=== PATIENT | male | born 1960 | race Caucasian/White ===

== ENCOUNTER 2017-02-17 11:12 | Emergency (ER) | payer BC ==
--- NOTE | 2017-02-17 11:24 | UC ---
Complaint Male HPI - HPI Summary HPI Summary: 3-4 days of body feeling uncomfortable frequency urgency pain with urination no pain in flank around abdomen or testicle, pain is in tip of penis---he has noticed some blood in his urine, ---does have a sent has a plan to have it removed on the ----did have a kidney stone that was removed and know he has more that are in his kidney - History of Current Complaint Chief Complaint: UCGU Stated Complaint: KIDNEY PAIN,S/P STENT Time Seen by Provider: 02/17/17 11:22 Hx Obtained From: Patient Onset/Duration: Gradual Onset, Lasting Days - 3-4 Timing: Constant Severity Initially: Moderate Severity Currently: Moderate Pain Intensity: 6 Pain Scale Used: 0-10 Numeric Location: Penis Character: Burning Aggravating Factor(s): Voiding Associated Signs And Symptoms: Positive: Hematuria, Dysuria - Allergies/Home Medications Allergies/Adverse Reactions: Allergies Allergy/AdvReac Type Severity Reaction Status Date / Time No Known Allergies Allergy Verified 02/17/17 11:17 Home Medications: Home Medications Omeprazole CAP* [Prilosec CAP* 20 MG] 20 mg PO DAILY 02/17/17 [History Confirmed 02/17/17] Phenazopyridine TAB* [Pyridium 100 mg TAB*] 100 mg PO TID 02/17/17 [History Confirmed 02/17/17] Pseudoephedrine TAB* [Sudafed TAB*] 30 mg PO TID PRN 02/17/17 [History Confirmed 02/17/17] Tamsulosin CAP* [Flomax CAP*] 0.4 mg PO DAILY 02/17/17 [History Confirmed ] PMH/Surg Hx/FS Hx/Imm Hx Previously Healthy: No GI/ History: Ulcer, Kidney Stones, Other Other GI/ History: pancreatitis - Family History Known Family History: Positive: None - Social History Alcohol Use: None Substance Use Type: None Smoking Status (MU): Never Smoked Tobacco Review of Systems Constitutional: Negative Skin: Negative Eyes: Negative ENT: Negative Respiratory: Negative Cardiovascular: Negative Gastrointestinal: Negative Genitourinary: Negative, Dysuria, Frequency, Urgency, Vaginal/Penile Burning Motor: Negative Neurovascular: Negative Musculoskeletal: Negative Neurological: Negative Psychological: Negative Is Patient Immunocompromised?: No All Other Systems Reviewed And Are Negative: Yes Physical Exam Triage Information Reviewed: Yes Appearance: Well-Appearing, No Pain Distress, Well-Nourished Vital Signs Reviewed: Yes Eye Exam: Normal Eyes: Positive: Conjunctiva Clear ENT Exam: Normal ENT: Positive: Normal ENT inspection, Hearing grossly normal. Negative: Nasal congestion, Nasal drainage, Trismus, Muffled/hoarse voice Dental Exam: Normal Neck exam: Normal Neck: Positive: Supple, Nontender, No Lymphadenopathy Respiratory Exam: Normal Respiratory: Positive: Chest non-tender, Lungs clear, No respiratory distress, No accessory muscle use Cardiovascular Exam: Normal Cardiovascular: Positive: RRR, No Murmur, Pulses Normal, Brisk Capillary Refill Abdominal Exam: Normal Abdomen Description: Positive: Nontender, No Organomegaly, Soft. Negative: CVA Tenderness (R), CVA Tenderness (L), Distended, Guarding Bowel Sounds: Positive: Present Musculoskeletal Exam: Normal Musculoskeletal: Positive: Strength Intact, ROM Intact Neurological Exam: Normal Neurological: Positive: Alert, Muscle Tone Normal Psychological Exam: Normal Skin Exam: Normal Diagnostics - Laboratory Diagnostic Studies Completed/Ordered: UA- +3 Blood +1 Leukoesterase Complaint Male Course/Dx - Course Course Of Treatment: NPO Transfer to [facility] - Differential Dx/Diagnosis Provider Diagnoses: HEmaturia, right ureteral stent - Physician Notifications Time Discussed With Above Provider: 11:50 Harrison Samson STUBBER Instructed by Provider To: Transfer Discharge - Discharge Plan Condition: Stable Disposition: OTHER Discharge Disposition Comment: to [facility] Discharged by Private Car Patient Education Materials: Hematuria (ED) Additional Instructions: THe plan is for you to go directly to the emergency department at [facility] for Higher level of care
[2017-02-17 11:28] VITALS: BP 118/78
== END 2017-02-17 11:56 ==
LOC: UCCORT 11:12
DX: R31.9 Hematuria, unspecified (principal); Z96.0 Presence of urogenital implants
CPT/HCPCS: 81003; 87086; 99202; G0463